=== PATIENT | female | born 1995 | race Caucasian/White ===

== ENCOUNTER 2025-08-29 13:08 | Emergency (ER) | payer MEDICAID ==
[~2025-08-29] VITALS: Ht 167.6 cm; Wt 75.7 kg
[2025-08-29 13:14] VITALS: BP 136/78; O2SAT 98
== END 2025-08-29 13:58 | disposition left against medical advice (07) ==
LOC: ER 13:08
DX: O26.91 Pregnancy related conditions, unspecified, first trimester (principal); F17.200 Nicotine dependence, unspecified, uncomplicated; Z3A.01 Less than 8 weeks gestation of pregnancy
CPT/HCPCS: A4606; A4663